=== PATIENT | female | born 1935 | race Caucasian/White ===

== ENCOUNTER 2019-04-15 10:04 | Emergency (ER) | payer MEDICARE ==
[2019-04-15 10:35] VITALS: BP 138/66
--- NOTE | 2019-04-15 10:44 | UC ---
General HPI - HPI Summary HPI Summary: Pt had her L lower back tooth removed this past Saturday. 2 days later, it felt swelled and pt is having pain. She had a dental f/u today; however, the dentist is ill so they canceled the appt. She is to f/u this Saturday. No fever, THOMAS or sore throat. - History of Current Complaint Chief Complaint: UCDentalProblem Stated Complaint: DENTAL COMPLAINT Time Seen by Provider: 04/15/19 10:22 Hx Obtained From: Patient Onset/Duration: Gradual Onset Timing: Constant Pain Intensity: 6 Associated Signs & Symptoms: Negative: Fever, Headache - Allergy/Home Medications Allergies/Adverse Reactions: Allergies Allergy/AdvReac Type Severity Reaction Status Date / Time Penicillins Allergy Rash Verified 04/15/19 10:19 codeine AdvReac See Comment Verified 04/15/19 10:20 Home Medications: Home Medications Acetaminophen 650 mg PO Q4H 04/15/19 [History Confirmed 04/15/19] PMH/Surg Hx/FS Hx/Imm Hx - Additional Past Medical History Additional PMH: Bladder CA Cardiovascular History: Atrial Fibrillation - Surgical History Surgical History: Yes Surgery Procedure, Year, and Place: continent diversion pouch r/t removal of bladder - Family History Known Family History: Positive: Hypertension - Social History Alcohol Use: Occasionally Substance Use Type: None Smoking Status (MU): Never Smoked Tobacco Review of Systems All Other Systems Reviewed And Are Negative: No Constitutional: Negative: Fever, Chills Skin: Negative: Rash Eyes: Negative: Drainage, Eye Redness ENT: Positive: Other - Pain L lower jaw. Negative: Sore Throat, Ear Ache, Sinus Congestion Neurological: Negative: Headache Physical Exam Triage Information Reviewed: Yes Completion Of Physical Exam Limited Due To: Extremis Vital Signs: Initial Vital Signs Temp 98.4 F 04/15/19 10:23 Pulse 67 04/15/19 10:23 Resp 16 04/15/19 10:23 BP 138/66 04/15/19 10:23 Pulse Ox 98 04/15/19 10:23 Vital Signs Reviewed: Yes Eyes: Positive: Conjunctiva Clear ENT: Positive: Pharynx normal, TMs normal. Negative: Nasal congestion, Nasal drainage Dental: Positive: Other: - L lower posterior-lateral jaw with mild swelling and tenderness but not fluctuant. Extraction site appears closed. No parotid or sublingual gland swelling/tenderness. Neck: Positive: Supple, Nontender, No Lymphadenopathy Course/Dx - Differential Dx - Multi-Symptom Differential Diagnoses: Other - no concern for salivary gland infection or ludwigs angina. no concern for dry socket. - Diagnoses Provider Diagnosis: Odontogenic infection of jaw Discharge ED - Sign-Out/Discharge Documenting (check all that apply): Patient Departure All imaging exams completed and their final reports reviewed: No Studies - Discharge Plan Condition: Stable Disposition: HOME Prescriptions: Amoxicillin PO (*) [Amoxicillin 875 MG (*)] 875 mg PO BID 10 Days #20 tab Patient Education Materials: Dental Abscess (ED) Referrals: Magalis Ocampo MD [Primary Care Provider] - If Needed Additional Instructions: FOLLOW UP WITH DR OLIVARES, YOUR DENTIST THIS SATURDAY DIRECTED. GO TO THE ER FOR ANY WORSENING. - Billing Disposition and Condition Condition: STABLE Disposition: Home
== END 2019-04-15 10:57 | disposition home or self-care (01) ==
LOC: UCCORT 10:04
DX: M27.2 Inflammatory conditions of jaws (principal); Z88.0 Allergy status to penicillin; Z85.51 Personal history of malignant neoplasm of bladder; Z93.6 Other artificial openings of urinary tract status
CPT/HCPCS: 99202; G0463